=== PATIENT | male | born 1990 | race Caucasian/White ===

== ENCOUNTER 2025-09-29 07:09 | Emergency (ER) | payer SELFPAY ==
[2025-09-29 07:10] VITALS: BP 115/83; PULSE 89; RESP 18; TEMP 36.9; O2SAT 100; BMI 31.2
--- NOTE | 2025-09-29 07:36 | EDS_ITS ---
HPI History of Present Illness Chief Complaint: Flank Pain Narrative Narrative: Patient is a 54-year-old male with past medical history ADHD, migraines, asthma who presents to the emergency department the chief complaint of left-sided back pain. He states that it has been bothering him for the past few days he states that also a week ago he had bilateral lower back pain but did not think anything of this at that point in time. He states that yesterday he was in severe pain on the left side of his back would radiate to his front of his abdomen he states that he broke out in a sweat. He states that he waited 5 hours through the pain and decided to come to the emergency department and by the time he got here the pain resolved therefore he was not evaluated. Patient denies any injuries to his back denies a history of kidney stones. Patient states he does smoke and has alcohol use but denies any IV drug use [facility] Medical History Smoker ADHD (attention deficit hyperactivity disorder) Migraines Back problem Asthma Home Medications Medication Instructions Recorded Last Taken Type ketorolac 10 mg tablet 10 mg PO Q8H PRN pain #15 ta bs 09/29/25 Unknown Rx ondansetron 4 mg disintegrating 4 mg PO Q6H PRN nausea and 09/29/25 Unknown Rx tablet vomiting #20 tabs oxycodone-acetaminophen 5 mg-325 1 tab PO Q6H PRN pain 2 days #8 09/29/25 Unknown Rx mg tablet (Endocet) tabs tamsulosin 0.4 mg capsule (Flomax) 0.4 mg PO DAILY #20 caps 09/29/25 Unknown Rx Allergy/AdvReac Type Severity Reaction Status Date / Time No Known Allergies Allergy Verified 09/29/25 07:09 Family History Grandfather Myocardial infarction, Onset Age: 55 Aunt Diabetes Uncle Diabetes Other Cancer Social History Smoking Status: Current some day smoker tobacco type: cigarettes Tobacco: How many years used: 10 alcohol intake: current alcohol intake frequency: a few times a month substance use type: does not use what type of physical activity do you participate in: other details: weight lifting with work and lots of walking frequency: daily ROS ROS ED ROS Narrative Constitutional: Denies any fevers, chills, headaches Abdomen: Complaint of pain being referred to his abdomen as noted above denies nausea vomit diarrhea : Denies any urinary symptoms Neurological: Denies any numbness, weakness, tingling Musculoskeletal: Complains of left-sided back pain as noted above Skin: Denies any rashes or lesions EXAM Physical Exam Narrative Exam Narrative: General: Patient was lying in bed rest comfortably did not appear to be in acute distress Head: Atraumatic, normocephalic Eyes: PERRL bilaterally, EOMI bilateral, no conjunctival injection noted Neck: Soft, supple, trachea midline Cardiovascular: Regular rate and rhythm Respiratory: Clear to auscultation bilaterally Abdomen: Soft, nondistended, no tenderness palpation Musculoskeletal: No tenderness palpation midline of the thoracolumbar spine Extremities: +5/5 strength noted in the bilateral lower extremities Neurological: Patient following commands knew that he was at [facility] years 2024 Skin: Warm, dry, intact no rashes or lesions noted Const Vital Signs: 09/29/25 07:10 Temperature 98.4 F Temperature Source Oral Pulse Rate 89 Respiratory Rate 18 Blood Pressure 115/83 H Blood Pressure Mean 93 Pulse Ox 100 Oxygen Delivery Method Room Air MDM MDM MDM Narrative Medical decision making narrative: Patient is a 34-year-old male who presented to the emergency department the chief complaint of chest pain. On the differential diagnose includes but not limited to urolithiasis, UTI, pyelonephritis. Once workup is obtained reviewed he will be reevaluated. Patient took ibuprofen just prior to arrival therefore he will be given morphine and Zofran. Patient CBC reviewed and showed no evidence of leukocytosis white blood count over 9.9, hemoglobin 15.8, platelet count of 254. Baseline is 130, calcium of 4, creatinine was 0.81. Patient AST and ALT were 30 and 39 respectively lipase normal at 38. Patient urinalysis did show occult blood however no evidence of infection. Patient's CT abdomen pelvis without contrast reviewed showed a 0.3 cm nonobstructing stone in the midpole of the right kidney with smaller stones noted there are multiple nonobstructing left renal stones with the largest measuring 0.3 cm in the midpole there is a 0.4 cm stone in the proximal left ureter with no significant hydronephrosis. I discussed the results with the patient and he was advised to use the medications as prescribed which will be: Toradol, Flomax, Endocet, Zofran. He is advised to follow-up with urology in the outpatient setting and return with worsening symptoms or concerns. He is vies to not operate anything under the influence of narcotic. He is agreeable with this plan as well as family bedside all question concerns answered is discharged home in stable condition Lab Data Labs: Laboratory Results - last 24 hr 09/29/25 09/29/25 07:24 07:33 WBC 9.9 RBC 4.85 Hgb 15.8 Hct 45.3 MCV 93.4 MCH 32.6 H MCHC 34.9 RDW Std Deviation 41.9 RDW Coeff of Reza 12.2 Plt Count 254 MPV 10.1 Immature Gran % (Auto) 0.400 Neut % (Auto) 72.7 H Lymph % (Auto) 15.3 L [place]pine % (Auto) 9.9 Eos % (Auto) 1.0 Baso % (Auto) 0.7 Absolute Neuts (auto) 7.2 Absolute Lymphs (auto) 1.51 Nucleated RBC % 0 Sodium 138 Potassium 4.0 Chloride 105 Carbon Dioxide 22.8 Anion Gap 11 BUN 11 Creatinine 0.81 Estim Creat Clear Calc 145.01 Est GFR (MDRD) Non-Af 120 BUN/Creatinine Ratio 13.4 Glucose 111 H Calcium 9.4 Total Bilirubin 0.45 AST 30 ALT 39 Alkaline Phosphatase 73 Total Protein 6.3 Albumin 4.1 Globulin 2.2 Albumin/Globulin Ratio 1.9 Lipase 38 Urine Color Yellow Urine Clarity Clear Urine pH 6.0 Ur Specific [place] 1.025 Urine Protein 15 H Urine Glucose (UA) Normal Urine Ketones Negative Urine Occult Blood 25 H Urine Nitrite Negative Urine Bilirubin Negative Urine Urobilinogen 1 H Ur Leukocyte Esterase Negative Urine RBC 0-5 SEEN Urine WBC 0-5 SEEN Ur Squamous Epith Cells 0 SEEN Urine Bacteria 0 SEEN Urine Mucus 3+ Radiography Diagnostic Testing: Clinical Impression(s) from Imaging Studies Abdomen/Pelvis CT 09/29/25 07:39 IMPRESSION: There is a 0.3 cm nonobstructing stone in the midpole of the right kidney with smaller stones noted. There are multiple nonobstructing left renal stones with the largest measuring 0.3 cm in the midpole. There is a 0.4 cm stone in the proximal left ureter, image 83/203. There is no significant hydronephrosis. Reading [facility] Discharge Plan Triage Chief Complaint: Flank Pain ED Provider: Jesus Castaneda Dx/Rx/DC Orders Clinical Impression: Bilateral nephrolithiasis, Urolithiasis, Acute left flank pain, Asthma Prescriptions: New tamsulosin [Flomax] 0.4 mg capsule 0.4 mg PO DAILY Qty: 20 0RF ketorolac 10 mg tablet 10 mg PO Q8H PRN (Reason: pain) Qty: 15 0RF Rx Instructions: maximum total duration of 5 days from all oral, intranasal, or parenteral formulations oxycodone-acetaminophen [Endocet] 5-325 mg tablet 1 tab PO Q6H PRN (Reason: pain) 2 Days Qty: 8 0RF ondansetron 4 mg tablet,disintegrating 4 mg PO Q6H PRN (Reason: nausea and vomiting) Qty: 20 0RF Stand Alone Forms: ED Work / School Excuse Primary Care Provider: Care Physician,No Primary Referrals: Yosi Guillaume MD [Med Staff - Active Staff, Urology] Care Physician,No Primary [Primary Care Provider, Medical] Activity Restrictions/Additional Instructions: Use prescriptions as prescribed you have kidney stones. Return with worsening symptoms or any other concerns. Do not operate anything under the influence of the narcotic Endocet as it will make you sleepy and drowsy Ensure you take the Zofran with this as well as it will upset your stomach. Print Language: Telugu Disposition Disposition: Home, Self Care D/C Safety Score for UGIB Assessment Cameron-Blatchford Bleeding Score (GBS): Stratifies upper GI bleeding patients who are "low-risk" and candidates for outpatient management. Sex: Male Hemoglobin, BUN, Recent Vital Signs: Hgb 15.8 g/dL (13.0-16.5) 09/29/25 07:33 BUN 11 mg/dL (4-19) 09/29/25 07:33 Pulse Rate 89 Blood Pressure 115/83 Total Risk Score: 1 Score Interpretation: Score of 0: A GBS of 0 is a “Low Risk” GI bleed, and is highly sensitive (99.6% in a 2007 retrospective study) for predicting which patients did not require any “medical intervention”: blood transfusion, endoscopy, or surgery. This was confirmed in a 2009 Lanc study where patients with a score of 0 were actually discharged and had no GI bleeding mortality at 6 month followup Score above 0: A GBS greater than zero suggests a “High Risk” GI bleed that is likely to require “medical intervention”: transfusion, endoscopy, or surgery. A higher GBS also correlated with a higher likelihood of needing intervention Scores >/= 6 are associated with >50% risk of needing intervention D/C Safety Score for LGIB Assessment Assessment Tool: Readmission and adverse event risk in patients with acute lower GI bleeding. Age, in years: <40 Sex: Male Hemoglobin and Recent Vital Signs: Hgb 15.8 g/dL (13.0-16.5) 09/29/25 07:33 Pulse Rate 89 09/29/25 07:10 Blood Pressure 115/83 09/29/25 07:10 Probability of safe discharge: 99% Total Risk Score: 1 Score Interpretation: Probability Percentage of safe discharge (absence of rebleeding, blood transfusion, therapeutic intervention, 28 day readmission, or ) Score of 8 or below: Consider discharge, with appropriate precautions. Score of 9 or above: Discharge NOT recommended. Consider admission with further workup and resuscitation as necessary.
[2025-09-29 07:39] LABS: Squamous Epithelial Cells - UA 0 SEEN /hpf (0-5)
--- NOTE | 2025-09-29 07:39 | CT_ITS ---
PROCEDURE: ABDOMEN/PELVIS WITHOUT CONT 09/29/2025 REASON FOR EXAM: LEFT FLANK PAIN TECHNIQUE: Procedure Code: CTABDPEL Modality: CT Procedure: ABDOMEN/PELVIS WITHOUT CONT Noncontrast technique limits evaluation of the abdominal and pelvic viscera. Coronal and Sagittal reconstruction series were provided. One or more dose reduction techniques were used (e.g., Automated exposure control, adjustment of the mA and/or kV according to patient size, use of iterative reconstruction technique). RADIATION DOSE SUMMARY: DLP = 485 mGy-cm COMPARISON: None FINDINGS: Lung bases: A 1.3 cm nodule in the left lingular segment, image 16/203. Liver: Unremarkable Gallbladder: Unremarkable Spleen: Unremarkable Pancreas: Remarkable Adrenals: Kidneys: There is a 0.3 cm nonobstructing stone in the midpole of the right kidney with smaller stones noted. There is a 0.4 cm stone in the proximal left ureter, image 83/203. There are multiple nonobstructing left renal stones with the largest measuring 0.3 cm in the midpole. Bladder: Unremarkable Reproductive Organs: Unremarkable Bowel: Gas and stool is noted in the colon. There is a moderate stool load. The small-bowel loops are nondistended. Appendix: Unremarkable Lymph nodes: There is no pathologic adenopathy by size criteria. Vasculature: There is no significant atherosclerosis Peritoneum / Retroperitoneum: There is no free air or free fluid Bones: There is no acute bony abnormality CT/Abdomen/Pelvis without Cont IMPRESSION: There is a 0.3 cm nonobstructing stone in the midpole of the right kidney with smaller stones noted. There are multiple nonobstructing left renal stones with the largest measuring 0.3 cm in the midpo le. There is a 0.4 cm stone in the proximal left ureter, image 83/203. There is no significant hydronephrosis. Reading Location: [facility]
[2025-09-29] MEDS: 0.9% Normal Saline (1000mL) 1,000 ML 999 ML IV (07:49)
[2025-09-29 07:54] LABS: Hematocrit 45.3 % (40-54); Hemoglobin 15.8 g/dL (13.0-16.5); Immature Granulocytes Count 0.040 X10^3/uL (0.0-0.0); Mean Corp Hgb Conc 34.9 g/dL (32-36); Mean Corpuscular Volume 93.4 fL (80-94); Mean Platelet Vol. 10.1 fl (6.2-12.0); NRBC Flagged by Analyzer 0 % (0-5); Platelet Count 254 K/mm3 (150-450); RBC Distribution Width CV 12.2 % (11.6-14.6); RBC Distribution Width SD 41.9 fl (35.1-43.9); Red Blood Count 4.85 M/mm3 (4.6-6.2); White Blood Count 9.9 K/mm3 (4.4-11.0)
[2025-09-29 08:10] LABS: Color, Urine Yellow (Yellow); Glucose, Dipstick Normal (Normal); Ketone-Dipstick Negative (Negative); Leukocyte Esterase-Dipstick Negative /ul (Negative); Nitrite-Dipstick Negative (Negative); Occult Blood-Urine 25 /ul (Negative); Protein-Dipstick 15 mg/dl (Negative); Specific Gravity, Urine 1.025 (1.002-1.030); Urine Bilirubin Dipstick Negative (Negative)
[2025-09-29 08:21] LABS: Mucous, Urine 3+ /hpf (<or=2+); Red Blood Cells-Urine 0-5 SEEN /hpf (0-5)
[2025-09-29 08:23] LABS: AST(SGOT) 30 U/L (<=37); Alanine Aminotransfer ALT/SGPT 39 U/L (<=46); Albumin, Serum 4.1 g/dL (3.5-5.0); Alkaline Phosphatase 73 U/L (40-129); Anion Gap 11 (5-15); BUN 11 mg/dL (4-19); BUN/Creat Ratio 13.4 RATIO (10-20); Calcium,Total 9.4 mg/dL (7.6-11.0); Carbon Dioxide 22.8 mmol/L (21.0-32.0); Chloride 105 mmol/L (98-108); Estimated Creatinine Clearance 145.01 ml/min (50-250); Globulin 2.2 g/dL (2.2-4.2); Glucose 111 mg/dL (70-99); Lipase 38 U/L (13-75); Potassium 4.0 mmol/L (3.3-5.1)
[2025-09-29 09:12] VITALS: BP 112/87; PULSE 87; RESP 16; TEMP 36.6; O2SAT 100
== END 2025-09-29 09:12 | disposition home or self-care (01) ==
PROVIDERS: Emergency Provider Emergency Medicine; Visit Provider Emergency Medicine
DX: N20.2 Calculus of kidney with calculus of ureter (principal); J45.909 Unspecified asthma, uncomplicated; R10.A2 Flank pain, left side; F17.210 Nicotine dependence, cigarettes, uncomplicated
CPT/HCPCS: 74176; 80053; 81001; 83690; 85025; 96361; 96374; 96375; 99283; A4216; J2405